=== PATIENT | male | born 1995 | race African-American/Black ===

== ENCOUNTER 2017-05-15 04:05 | Emergency (ER) | payer SELFPAY ==
[~2017-05-15] VITALS: Ht 198.1 cm; Wt 102.0 kg
[~2017-05-15 04:05] MED LIST: ALBUTEROL SULF8.5 GM IH; MOTRIN800 MG PO; ZITHROMAX Z-PA250 MG PO
[2017-05-15] MEDS ORDERED: AUGMENTIN875 MG PO (05:45)
[2017-05-15 06:01] VITALS: BP 115/71
== END 2017-05-15 06:07 | disposition home or self-care (01) ==
LOC: EME 04:05
DX: S00.83XA Contusion of other part of head, initial encounter (principal); S20.211A Contusion of right front wall of thorax, initial encounter; S02.2XXA Fracture of nasal bones, initial encounter for closed fracture; J34.89 Other specified disorders of nose and nasal sinuses; F10.129 Alcohol abuse with intoxication, unspecified; F17.200 Nicotine dependence, unspecified, uncomplicated; Y09 Assault by unspecified means
CPT/HCPCS: 70450; 70486; 71101; 99281; 99284